=== PATIENT | male | born 1935 | race Caucasian/White ===

== ENCOUNTER 2023-03-18 00:21 | Inpatient (IN) ==
[2023-03-18 00:50] LABS: INR 1.93 (0.83-1.13)
[2023-03-18 00:51] LABS: ABS Basophils 0.1 10^3/uL (0.0-0.1); ABS Lymphocytes 0.6 10^3/uL (1.0-4.8); ABS Monocytes 0.6 10^3/uL (0.0-1.1); ABS Neutrophils 10.6 10^3/uL (1.5-7.6); ABS Nucleated RBC 0.05 10^3/ul; Eosinophil % 0.3 %; Hematocrit 14.5 % (38-53); Lymphocyte % 4.6 %; Mean Corpuscular Hemoglobin 21.4 pg (27-33); Mean Corpuscular Hgb Conc 27.4 g/dL (31-36); Mean Corpuscular Volume 77.8 fL (80-97); Mean Platelet Volume 8.4 fL (7.5-11.2); Nucleated Red Blood Cells % 0.4 %/100WBC (0.0-0.8); Platelet Count 375 10^3/uL (150-450); Red Blood Count 1.87 10^6/uL (4.06-5.63); Red Cell Distribution Width 20.7 % (12-17); White Blood Count 11.9 10^3/uL (3.6-10.2)
[2023-03-18 01:01] LABS: Albumin 3.8 g/dL (3.2-5.2); Albumin/Globulin Ratio 1.3 (1-3); Calcium 8.9 mg/dL (8.6-10.3); Creatinine, Serum 3.51 mg/dL (0.67-1.17); Globulin 2.9 g/dL (2-4); Potassium 4.5 mmol/L (3.5-5.0); Total Bilirubin 0.4 mg/dL (0.2-1.0); Total Protein 6.7 g/dL (6.4-8.9); eGFR CKD-EPI 15.9 (>60)
[2023-03-18] MEDS ORDERED: Lactated Ringers 1000 ml BAG 1,000 ML IV ONE (01:03)
[2023-03-18] MEDS ORDERED: Vancomycin 1,000 MG in NS 0.9% 250 ml 250 ML IVPB ONE (01:03)
[2023-03-18] MEDS ORDERED: Piperacillin/Tazobac 3.375 BAG 3.375 GM/100 ML BAG IV ONE (01:03)
[2023-03-18] MEDS ORDERED: Pantoprazole VIAL 40 MG VIAL IV ONE (01:06)
[2023-03-18 02:04] LABS: Activated Partial Thrombo Time 29.3 seconds (26.0-38.0)
[2023-03-18 02:05] LABS: C Reactive Protein 4.11 mg/L (<8.01)
[2023-03-18 02:15] LABS: Urine Appearance Cloudy; Urine Bilirubin Negative (Negative); Urine Blood 2+ (Negative); Urine Color Yellow; Urine Glucose Negative (Negative); Urine Ketones Negative (Negative); Urine Nitrite Negative (Negative); Urine Protein 1+(30 mg/dL) (Negative); Urine Specific Gravity 1.013 (1.002-1.030); Urine Urobilinogen Negative (Negative)
[2023-03-18 02:23] LABS: Urine Bacteria 1+ (Absent); Urine Red Blood Cell 3+(>10/hpf) (Absent); Urine White Blood Cell 3+(>20/hpf) (Absent)
[2023-03-18 02:29] LABS: High Sensitivity Troponin 1 Hr 58 pg/mL (<20)
[2023-03-18] MEDS ORDERED: Ondansetron 4 mg VIAL 2 MG/ML 2 ml VIAL IV PRN (04:03)
[2023-03-18] MEDS: Pantoprazole 80 mg in NS BAG 80 MG/250 ML BAG IV SCH ×2 (04:39→14:49)
[2023-03-18] MEDS ORDERED: Zosyn per Pharmacy NOTE FOLLOW UP SCH (05:00)
[2023-03-18] MEDS ORDERED: Thiamine 100 MG/ML 2 ml VIAL 250 MG in NS 0.9% 100 ml BAG 100 ML IV SCH (05:00)
[2023-03-18 05:13] LABS: Calcium 7.5 mg/dL (8.6-10.3); Creatinine, Serum 3.29 mg/dL (0.67-1.17); Phosphorus 6.2 mg/dL (2.5-5.0); Potassium 5.2 mmol/L (3.5-5.0); eGFR CKD-EPI 17.2 (>60)
[2023-03-18] MEDS: ZOSYN 3.375 GM Q12H per EXTENDED INFUSION IV SCH ×2 (06:21→18:43)
[2023-03-18 08:14] LABS: Hematocrit 19.1 % (38-53); Hemoglobin 5.8 g/dL (13.2-16.3)
[2023-03-18 09:39] LABS: Hematocrit 20.3 % (38-53); Hemoglobin 6.3 g/dL (13.2-16.3); Mean Corpuscular Hemoglobin 24.2 pg (27-33); Mean Corpuscular Volume 77.9 fL (80-97); Mean Platelet Volume 8.2 fL (7.5-11.2); Platelet Count 242 10^3/uL (150-450); Red Blood Count 2.61 10^6/uL (4.06-5.63); Red Cell Distribution Width 19.6 % (12-17); White Blood Count 27.9 10^3/uL (3.6-10.2)
[2023-03-18 09:45] LABS: Ferritin 7.5 ng/mL (24-336)
[2023-03-18 10:27] LABS: ABS Basophils 0.3 10^3/uL (0.0-0.1); ABS Lymphocytes 0.4 10^3/uL (1.0-4.8); ABS Monocytes 1.3 10^3/uL (0.0-1.1); ABS Neutrophils 25.9 10^3/uL (1.5-7.6); ABS Nucleated RBC 0.02 10^3/ul; Lymphocyte % 1.5 %; Nucleated Red Blood Cells % 0.1 %/100WBC (0.0-0.8)
[2023-03-18 15:28] LABS: Calcium 7.5 mg/dL (8.6-10.3); Creatinine, Serum 3.58 mg/dL (0.67-1.17); Potassium 5.9 mmol/L (3.5-5.0); eGFR CKD-EPI 15.6 (>60)
[2023-03-18] MEDS ORDERED: CALCIUM GLUCONATE 1GM/50ML NS 1 GM/50 ML BAG IV ONE (17:19)
[2023-03-18] MEDS ORDERED: Albuterol 2.5mg/3 ml (0.083%) NEB.SOLN INH ONE (17:19)
[2023-03-18] MEDS ORDERED: Dextrose 50% Syringe 50 ml 25 GM/50 ML SYRINGE IV PUSH ONE (17:20)
[2023-03-18] MEDS ORDERED: Magnesium Sulfate 2 gm BAG 2 GM/50 ML BAG IVPB ONE (18:34)
[2023-03-18] MEDS: SODIUM ZIRCONIUM CYCLOSILICATE 10 GM PACKET PO SCH (21:34)
[2023-03-18] MEDS: Pantoprazole VIAL 40 MG VIAL IV SCH (21:34)
[2023-03-18 22:04] LABS: ABS Basophils 0.1 10^3/uL (0.0-0.1); ABS Lymphocytes 0.4 10^3/uL (1.0-4.8); ABS Neutrophils 18.6 10^3/uL (1.5-7.6); ABS Nucleated RBC 0.01 10^3/ul; Eosinophil % 0.1 %; Hemoglobin 7.4 g/dL (13.2-16.3); Lymphocyte % 2.1 %; Mean Corpuscular Hemoglobin 25.7 pg (27-33); Mean Corpuscular Hgb Conc 32.1 g/dL (31-36); Mean Platelet Volume 8.3 fL (7.5-11.2); Nucleated Red Blood Cells % 0.1 %/100WBC (0.0-0.8); Platelet Count 207 10^3/uL (150-450); Red Blood Count 2.87 10^6/uL (4.06-5.63); Red Cell Distribution Width 19.1 % (12-17); White Blood Count 20.1 10^3/uL (3.6-10.2)
[2023-03-18 22:22] LABS: Potassium 5.2 mmol/L (3.5-5.0)
[2023-03-19 00:10] LABS: Creatinine, Serum 3.51 mg/dL (0.67-1.17); eGFR CKD-EPI 15.9 (>60)
[2023-03-19] MEDS: Thiamine 100 MG/ML 2 ml VIAL 250 MG in NS 0.9% 100 ml BAG 100 ML IV SCH (04:11)
[2023-03-19 04:19] LABS: ABS Lymphocytes 0.6 10^3/uL (1.0-4.8); ABS Monocytes 0.9 10^3/uL (0.0-1.1); ABS Neutrophils 14.4 10^3/uL (1.5-7.6); ABS Nucleated RBC 0.03 10^3/ul; Eosinophil % 0.2 %; Hematocrit 21.4 % (38-53); Hemoglobin 6.9 g/dL (13.2-16.3); Mean Corpuscular Hemoglobin 25.5 pg (27-33); Mean Corpuscular Hgb Conc 32.2 g/dL (31-36); Mean Corpuscular Volume 79.4 fL (80-97); Mean Platelet Volume 8.2 fL (7.5-11.2); Nucleated Red Blood Cells % 0.2 %/100WBC (0.0-0.8); Platelet Count 193 10^3/uL (150-450); Red Cell Distribution Width 19.4 % (12-17)
[2023-03-19] MEDS: ZOSYN 3.375 GM Q12H per EXTENDED INFUSION IV SCH ×2 (05:11→18:11)
[2023-03-19 06:26] LABS: Calcium 7.6 mg/dL (8.6-10.3); Creatinine, Serum 3.73 mg/dL (0.67-1.17); Magnesium 1.9 mg/dL (1.9-2.7); Potassium 5.1 mmol/L (3.5-5.0); eGFR CKD-EPI 14.8 (>60)
[2023-03-19] MEDS: Pantoprazole VIAL 40 MG VIAL IV SCH ×2 (08:58→20:06)
[2023-03-19] MEDS: SODIUM ZIRCONIUM CYCLOSILICATE 10 GM PACKET PO SCH (10:16)
[2023-03-19] MEDS ORDERED: Lactated Ringers 500 ml BAG 250 ML IV ONE (10:38)
[2023-03-19] MEDS ORDERED: Midazolam 10 mg/10 ml VIAL 1 mg/ml 10 ml VIAL (10 mg) ONE (12:18)
[2023-03-19] MEDS ORDERED: fentaNYL 100 mcg/2 ml 50 MCG/ML VIAL ONE (12:19)
[2023-03-19 17:11] LABS: INR 1.19 (0.83-1.13)
[2023-03-19 18:33] LABS: Hematocrit 23.5 % (38-53); Hemoglobin 7.6 g/dL (13.2-16.3)
[2023-03-19] MEDS ORDERED: SODIUM ZIRCONIUM CYCLOSILICATE 5 GM PACKET PO SCH (19:00)
[2023-03-20 04:37] LABS: ABS Basophils 0.1 10^3/uL (0.0-0.1); ABS Eosinophils 0.1 10^3/uL (0.0-0.5); ABS Lymphocytes 0.8 10^3/uL (1.0-4.8); ABS Neutrophils 9.1 10^3/uL (1.5-7.6); ABS Nucleated RBC 0.01 10^3/ul; Eosinophil % 0.6 %; Hemoglobin 7.1 g/dL (13.2-16.3); Mean Corpuscular Hemoglobin 25.7 pg (27-33); Mean Corpuscular Hgb Conc 32.1 g/dL (31-36); Mean Corpuscular Volume 80.3 fL (80-97); Mean Platelet Volume 8.3 fL (7.5-11.2); Nucleated Red Blood Cells % 0.1 %/100WBC (0.0-0.8); Platelet Count 169 10^3/uL (150-450); Red Blood Count 2.74 10^6/uL (4.06-5.63); Red Cell Distribution Width 19.1 % (12-17)
[2023-03-20] MEDS: Thiamine 100 MG/ML 2 ml VIAL 250 MG in NS 0.9% 100 ml BAG 100 ML IV SCH (04:44)
[2023-03-20 04:56] LABS: Albumin 2.9 g/dL (3.2-5.2); Albumin/Globulin Ratio 1.3 (1-3); Calcium 7.5 mg/dL (8.6-10.3); Creatinine, Serum 3.02 mg/dL (0.67-1.17); Globulin 2.3 g/dL (2-4); Magnesium 1.8 mg/dL (1.9-2.7); Potassium 4.7 mmol/L (3.5-5.0); Total Bilirubin 0.9 mg/dL (0.2-1.0); Total Protein 5.2 g/dL (6.4-8.9); eGFR CKD-EPI 19.1 (>60)
[2023-03-20] MEDS: ZOSYN 3.375 GM Q12H per EXTENDED INFUSION IV SCH ×2 (05:20→17:49)
[2023-03-20] MEDS ORDERED: Magnesium Sulfate IV 1GM/100ML 1 GM/100 ML BAG IV ONE (07:49)
[2023-03-20] MEDS: Pantoprazole VIAL 40 MG VIAL IV SCH ×2 (09:05→21:28)
[2023-03-20] MEDS: Ferric Gluconate IV 250 MG in NS 0.9% 250 ml 200 ML IVPB SCH (13:41)
[2023-03-21] MEDS: ZOSYN 3.375 GM Q12H per EXTENDED INFUSION IV SCH ×2 (05:57→18:46)
[2023-03-21 06:49] LABS: ABS Basophils 0.1 10^3/uL (0.0-0.1); ABS Eosinophils 0.1 10^3/uL (0.0-0.5); ABS Lymphocytes 0.5 10^3/uL (1.0-4.8); ABS Monocytes 0.8 10^3/uL (0.0-1.1); ABS Neutrophils 8.2 10^3/uL (1.5-7.6); ABS Nucleated RBC 0.01 10^3/ul; Eosinophil % 1.3 %; Hematocrit 24.7 % (38-53); Hemoglobin 8.1 g/dL (13.2-16.3); Lymphocyte % 5.6 %; Mean Corpuscular Hemoglobin 26.5 pg (27-33); Mean Corpuscular Hgb Conc 32.6 g/dL (31-36); Mean Corpuscular Volume 81.1 fL (80-97); Mean Platelet Volume 8.4 fL (7.5-11.2); Nucleated Red Blood Cells % 0.1 %/100WBC (0.0-0.8); Platelet Count 183 10^3/uL (150-450); Red Blood Count 3.05 10^6/uL (4.06-5.63); Red Cell Distribution Width 19.8 % (12-17); White Blood Count 9.8 10^3/uL (3.6-10.2)
[2023-03-21 07:04] LABS: Calcium 7.8 mg/dL (8.6-10.3); Creatinine, Serum 2.36 mg/dL (0.67-1.17); Magnesium 1.8 mg/dL (1.9-2.7); Potassium 4.3 mmol/L (3.5-5.0); eGFR CKD-EPI 25.7 (>60)
[2023-03-21] MEDS ORDERED: Magnesium Sulfate IV 1GM/100ML 1 GM/100 ML BAG IV ONE (07:23)
[2023-03-21] MEDS: Pantoprazole VIAL 40 MG VIAL IV SCH ×2 (09:12→20:20)
[2023-03-21] MEDS: Ferric Gluconate IV 250 MG in NS 0.9% 250 ml 200 ML IVPB SCH (11:18)
[2023-03-22] MEDS: ZOSYN 3.375 GM Q12H per EXTENDED INFUSION IV SCH ×2 (05:47→18:02)
[2023-03-22 07:31] LABS: ABS Basophils 0.1 10^3/uL (0.0-0.1); ABS Eosinophils 0.3 10^3/uL (0.0-0.5); ABS Lymphocytes 0.8 10^3/uL (1.0-4.8); ABS Monocytes 0.8 10^3/uL (0.0-1.1); ABS Neutrophils 7.5 10^3/uL (1.5-7.6); Eosinophil % 2.8 %; Hemoglobin 8.4 g/dL (13.2-16.3); Lymphocyte % 8.7 %; Mean Corpuscular Hemoglobin 26.7 pg (27-33); Mean Corpuscular Hgb Conc 32.3 g/dL (31-36); Mean Corpuscular Volume 82.7 fL (80-97); Mean Platelet Volume 8.6 fL (7.5-11.2); Platelet Count 181 10^3/uL (150-450); Red Blood Count 3.15 10^6/uL (4.06-5.63); Red Cell Distribution Width 20.4 % (12-17); White Blood Count 9.5 10^3/uL (3.6-10.2)
[2023-03-22 07:59] LABS: Calcium 7.6 mg/dL (8.6-10.3); Creatinine, Serum 2.02 mg/dL (0.67-1.17); Magnesium 1.8 mg/dL (1.9-2.7); Potassium 4.1 mmol/L (3.5-5.0); eGFR CKD-EPI 30.9 (>60)
[2023-03-22] MEDS: Pantoprazole VIAL 40 MG VIAL IV SCH ×2 (09:16→19:40)
[2023-03-22] MEDS: Ferric Gluconate IV 250 MG in NS 0.9% 250 ml 200 ML IVPB SCH (09:17)
[2023-03-23] MEDS: ZOSYN 3.375 GM Q12H per EXTENDED INFUSION IV SCH (04:45)
[2023-03-23 06:23] LABS: ABS Basophils 0.1 10^3/uL (0.0-0.1); ABS Eosinophils 0.3 10^3/uL (0.0-0.5); ABS Lymphocytes 0.8 10^3/uL (1.0-4.8); ABS Monocytes 0.9 10^3/uL (0.0-1.1); ABS Neutrophils 6.1 10^3/uL (1.5-7.6); ABS Nucleated RBC 0.01 10^3/ul; Eosinophil % 3.3 %; Hematocrit 24.7 % (38-53); Hemoglobin 7.8 g/dL (13.2-16.3); Lymphocyte % 10.3 %; Mean Corpuscular Hemoglobin 26.5 pg (27-33); Mean Corpuscular Hgb Conc 31.8 g/dL (31-36); Mean Corpuscular Volume 83.3 fL (80-97); Mean Platelet Volume 8.2 fL (7.5-11.2); Nucleated Red Blood Cells % 0.1 %/100WBC (0.0-0.8); Platelet Count 179 10^3/uL (150-450); Red Blood Count 2.96 10^6/uL (4.06-5.63); Red Cell Distribution Width 20.5 % (12-17); White Blood Count 8.2 10^3/uL (3.6-10.2)
[2023-03-23 06:30] LABS: Calcium 7.5 mg/dL (8.6-10.3); Creatinine, Serum 1.98 mg/dL (0.67-1.17); Magnesium 1.8 mg/dL (1.9-2.7); Potassium 3.9 mmol/L (3.5-5.0); eGFR CKD-EPI 31.7 (>60)
[2023-03-23] MEDS: Pantoprazole VIAL 40 MG VIAL IV SCH (08:38)
[2023-03-23] MEDS: Ferric Gluconate IV 250 MG in NS 0.9% 250 ml 200 ML IVPB SCH (10:58)
[2023-03-23 15:29] VITALS: BP 171/64
== END 2023-03-23 18:10 | disposition home or self-care (01) | DRG 663 ==
LOC: ED 00:21 → EDHOLD 04:04 → ICU 19:17 → MEDTELE 03-20 06:07
PROVIDERS: ADMIT Internal Medicine Pulmonary Disease; ATTEND Student in an Organized Health Care Education/Training Program